=== PATIENT | female | born 1960 | race Caucasian/White ===

== ENCOUNTER 2017-05-29 14:09 | Outpatient (CLI) | payer MEDICAID ==
--- NOTE | 2017-05-30 09:04 | Ultrasound Report ---
LEFT BREAST ULTRASOUND: 05/29/2017 CLINICAL INDICATION: Skin dimpling, palpable abnormality inferior left breast. TECHNIQUE: Real-time scanning was performed with business services sales representative static images obtained. FINDINGS: Ultrasound of the left breast and left axilla was performed. At the site of the palpable abnormality and skin dimpling, there is a hypoechoic vascular nodule, with irregular margins, measuri ng 1.9 x 1.7 x 1.9 cm. There is some posterior acoustic shadowing. Scanning of the left axilla demo nstrates an enlarged axillary lymph node, measuring 2.0 x 1.3 x 1.3 cm. IMPRESSION: FINDINGS HIGHLY SUGGESTIVE OF MALIGNANCY, WITH A HYPOECHOIC IRREGULAR NODULE AT THE SITE OF PALPABLE ABNORMALITY AND ENLARGED LEFT AXILLARY LYMPH NODE. RECOMMENDATION: Biopsy of both the breast lesion and axillary lymph node. BI-RADS category 5, highly suggestive of malignancy. Results and recommendations discussed with the patient at the time of the examination, and called to Dr. Kaufman's office on 05/29/2017. Biopsy is scheduled for 06/05/2017 at 9:45 a.m. JOB #: [id number] EXT JOB #:[id number]
--- NOTE | 2017-05-30 09:04 | Mammography Report ---
DIGITAL DIAGNOSTIC BILATERAL MAMMOGRAM: 05/29/2017 CLINICAL INDICATION: A 57-year-old nulliparous patient with inferior breast skin dimpling and possib le palpable abnormality on clinical examination. TECHNIQUE: Bilateral CC and MLO views, left true lateral view. Markers were placed at the site of s kin dimpling in the inferior left breast. COMPARISON: 04/19/2016, 10/27/2014. FINDINGS: The breasts again demonstrate scattered fibroglandular densities bilaterally. In the infe rior left breast, there is a 2 cm nodule with irregular margins, correlating with the region of skin dimpling. Additionally, there is a likely enlarged lymph node in the left axilla. Please also refer to left breast ultrasound of the same day. No mammographically suspicious findings are appreciated in the right breast. IMPRESSION: FINDINGS HIGHLY SUGGESTIVE OF MALIGNANCY, WITH A HYPOECHOIC IRREGULAR LESION ON ULTRASOU ND CORRELATING WITH THE MAMMOGRAPHIC ABNORMALITY, AND AN ENLARGED LEFT AXILLARY LYMPH NODE. RECOMMENDATION: Biopsy. The lesions appear amenable to ultrasound-guided core needle biopsy. BI-RADS category 5, highly suggestive of malignancy. Results and recommendations discussed with the patient at the time of the examination, and called to the office of Dr. Kaufman on 05/29/2017. Biopsy is scheduled for 06/05/2017 at 9:45 a.m. STANDARD QUALIFYING STATEMENTS 1. This examination was reviewed with the aid of Computer-Aided Detection (CAD). 2. A negative or benign imaging report should not delay biopsy if clinically suspicious findings are present. Consider surgical consultation if warranted. More than 5% of cancers are not identified by i maging. 3. Dense breasts may obscure an underlying neoplasm. JOB #: [id number] EXT JOB #:[id number]
== END 2017-05-29 14:10 | disposition home or self-care (01) ==
LOC: DI 14:09
PROVIDERS: ATTEND Obstetrics & Gynecology
DX: N63 Unspecified lump in breast (principal); R59.0 Localized enlarged lymph nodes
CPT/HCPCS: 76642; 77066

== ENCOUNTER 2017-06-05 09:31 | Outpatient (CLI) | payer MEDICAID ==
[2017-06-05 13:22] VITALS: BP 146/79
--- NOTE | 2017-06-05 14:27 | Ultrasound Report ---
ULTRASOUND-GUIDED CORE NEEDLE BIOPSY LEFT BREAST AND LEFT AXILLARY LYMPH NODE: 06/05/2017 CLINICAL INDICATION: Left breast nodule and enlarged left axillary lymph node. FINDINGS: Informed consent was obtained. Using standard aseptic technique, both 1% buffered lidocai ne and Marcaine were injected into the left breast for local anesthesia. A small luli was made in th e skin with a #11 blade. A 12-gauge Celero vacuum-assisted device was used to obtain four specimens. A Celero marker was placed into the biopsy cavity under ultrasound guidance. The enlarged left axillary lymph node was then targeted. Using standard aseptic technique, both 1% b uffered lidocaine and Marcaine were injected for local anesthesia. A small luli was made in the skin with a #11 blade. A 12-gauge Celero vacuum-assisted device was used to obtain three specimens. A C elero marker was placed into the biopsy cavity under ultrasound guidance. The patient was taken to a separate mammography machine and a two-view digital mammogram was performe d, documenting the position of the markers, and small post-biopsy hematomas. The wounds were dressed and ice applied. The patient was observed for approximately 15 minutes, then was discharged from [facility] in good condition following instructions on wound care and ob taining biopsy results. The tissue was sent for histologic analysis. IMPRESSION: ULTRASOUND-GUIDED BIOPSY OF THE LEFT BREAST AND AN ENLARGED LEFT AXILLARY LYMPH NODE. AN ADDENDUM WILL BE MADE TO THIS REPORT WHEN PATHOLOGY IS REVIEWED TO ESTABLISH CONCORDANCE. JOB #: [id number] EXT JOB #:[id number]
[2017-06-05] MEDS ORDERED: BUFFERED LIDOCAINE 10 ML SYRINGE IU ONE (14:29)
[2017-06-05] MEDS ORDERED: BUPIVACAINE 0.5%-EPI 1:200000 PF 10 ML VIAL SUBQ ONE (14:29)
== END 2017-06-05 09:32 | disposition home or self-care (01) ==
LOC: DI 09:31
PROVIDERS: ATTEND Obstetrics & Gynecology
DX: C50.512 Malignant neoplasm of lower-outer quadrant of left female breast (principal); C77.3 Secondary and unspecified malignant neoplasm of axilla and upper limb lymph nodes; Z17.0 Estrogen receptor positive status [ER+]
CPT/HCPCS: 19083; 38505

== ENCOUNTER 2019-05-27 12:28 | Day surgery (SDC) | payer MEDICAID ==
[2019-05-27] MEDS ORDERED: LACTATED RINGERS 1,000 ML IV ONE (13:19)
[2019-05-27] MEDS ORDERED: LIDOCAINE 1% 50 ML MDV ONE (13:22)
[2019-05-27 15:33] VITALS: BP 138/90
== END 2019-05-27 12:29 | disposition home or self-care (01) ==
LOC: SDS 12:28
PROVIDERS: ATTEND Surgery
PROC: 0DJD8ZZ Inspection of Lower Intestinal Tract, Via Natural or Artificial Opening Endoscopic (ICD-10-PCS; principal; 2019-05-27 14:00)
DX: Z12.11 Encounter for screening for malignant neoplasm of colon (principal); K64.8 Other hemorrhoids; I10 Essential (primary) hypertension; E03.9 Hypothyroidism, unspecified
CPT/HCPCS: 45378; J7120